=== PATIENT | female | born 1995 | race Caucasian/White ===

== ENCOUNTER 2018-07-13 23:19 | Emergency (ER) | payer MEDICAID ==
--- NOTE | 2018-07-13 23:29 | EDPHY ---
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 Patient is in no acute distress, not toxic-appearing. Physical examination reveals tenderness at the right navicular bone without significant swelling or ecchymosis; mild bony prominence when compared to the left side. X-ray reviewed by myself and Dr. Hoang, reveals no evidence of obvious fracture or malalignment. Patient has had pain for the last month that escalated over the last 3 days after long days of dancing; I have concern for navicular stress fracture or possibly ligamentous injury. There was no evidence of open fracture, dislocation, compartment syndrome or findings to suggest Lisfranc fracture. The patient was placed in a Pearson boot and was given crutches. I recommended nonweightbearing until follow-up with Podiatry. She will otherwise continue elevation, Tylenol and/or ibuprofen as needed for pain at home. Return precautions discussed-patient will return for significantly worsening or uncontrolled pain, numbness or tingling of the extremity, significant swelling or for any other concerning symptom. Patient and mother verbalized understanding and they are in agreement with this plan. DIFFERENTIAL DX: Differential diagnosis including but not limited to sprain, stress fracture, fracture, dislocation, compartment syndrome ED PROCEDURES: Procedure: Splint placement. A Pearson boot was applied. After application of the splint I returned and re- examined the patient. The splint was adequately immobilizing the joint and distal to the splint the patient's circulation and sensation was intact. CHIEF COMPLAINT: Right foot pain HPI: Patient is a 22-year-old female with no significant medical history, presents to the emergency department with right foot pain. Patient is a competitive dancer, over the last month she has experienced some intermittent right medial foot pain. They were recently traveling for competition, she has been not only dancing a lot but has also been walking a lot. Three days ago she had a worsening of her pain, describes it as sharp in nature and worsened with ambulation. She took some ibuprofen earlier today with mild relief of her symptoms. She denies any previous injury or surgery to this foot or ankle. She denies any direct trauma. She feels that it is located high in her foot and possibly into her ankle. She denies any increased pain with range of motion of her ankle. She denies any leg pain. She denies any other concern or complaint. PAST MEDICAL HISTORY: Denies Pertinent Past Surgical History: Denies Social History: Denies ROS: A full 10 point review of systems was negative except for those mentioned in HPI. PHYSICAL EXAM: General Appearance: Alert, well-appearing, no acute distress. HENT: Normocephalic, atraumatic. External ears are normal. Nares are clear, mucosa is pink. Oropharynx is clear. Eyes: PERRLA, EOMI. Conjunctiva pink, no pallor or injection. Neck: Supple, nontender, no lymphadenopathy, no midline pain, FROM. Respiratory: There are no retractions, lungs are clear to auscultation. Cardiac: Regular rate and rhythm, no murmurs or gallops. Gastrointestinal: Abdomen is soft, nontender, bowel sounds normal, no masses/ hernia, no rigidity, guarding or focal peritoneal findings. Skin: Warm, dry, no rashes, no nodules on palpation. Upper Extremities: Intact distal pulses, Full range of motion intact, no tenderness, no ecchymosis or edema Lower Extremities: Left lower extremity is unremarkable. Intact distal pulses, No edema, No tenderness, No cyanosis, full range of motion intact. Right lower extremity reveals tenderness to palpation medial foot at her navicular bone. There is mild bony prominence noted when compared to her left foot. There is no edema, ecchymosis or erythema. There are no open wounds. She has tenderness at the navicular bone as well as inferior to the medial malleolus. She has no lateral malleolar tenderness or edema. She has no tenderness at the base of the 5th metatarsal. Sensation is intact in her 1st webspace without tenderness to palpation. Dorsalis pedis 2+ bilaterally. No calf tenderness bilaterally. MEDICAL DECISION MAKING: Patient was seen independently. Secondary supervising physician at time of evaluation was Dr. Hoang, she did not evaluate this patient. Diagnosis: Right foot pain. New, requires workup Summary: See Assessment and Plan for summary of ED visit Clinical lab tests: Not applicable. Independent visualization of images, tracing, or specimens: Yes. Decision to obtain medical records or history from someone other than the patient: No Review / Summarize previous medical records: Yes Discussed patient with another provider: Yes, Dr. Hoang Patient Progress: Stable, discharge. (Tayler Mcdonald) PHYSICIAN DOCUMENTATION: The patient was evaluated and managed by the Physician Bran Mixer. My co- signature indicates that I have reviewed this chart and I agree with the findings and plan of care as documented. I am the secondary supervising physician. (Sabrina Hoang) - Objective Vital Signs: Initial Vital Signs Temperature (C) 36.8 C 07/13/18 23:23 Heart Rate 94 07/13/18 23:23 Respiratory Rate 16 07/13/18 23:23 Blood Pressure 97/83 H 07/13/18 23:23 O2 Sat (%) 99 07/13/18 23:23 O2 Delivery Mode Room Air Allergies/Adverse Reactions: No Known Allergies Allergy (Unverified 07/13/18 23:23) Home Medications: Medication Instructions Recorded NK [No Known Home Meds] 07/13/18 Medications Given: Discontinued Medications Ibuprofen (Motrin) 600 mg PO EDNOW ONE Stop: 07/14/18 00:18 Last Admin: 07/14/18 00:42 Dose: 600 mg Departure - Departure Disposition: Home, Routine, Self-Care Clinical Impression: Foot pain, right Condition: Good Instructions: Metatarsalgia (DC) Additional Instructions: DISCHARGE INSTRUCTIONS FROM YOUR DOCTOR Thank you for visiting our emergency department today. Please keep in mind that discharge from the emergency department does not mean that there is nothing wrong - it simply means that we have not identified an emergency condition that requires further evaluation or treatment in the hospital. You should always plan to follow up with primary care for re-evaluation of your condition in the next 2-3 days. If you have been referred to a specialist; you have been referred to Podiatry, please call on Monday morning to schedule a follow-up appointment. Rest, ice (on and off), elevate the foot and ankle as much possible above the level of the heart to decrease pain and swelling. Wear the boot, you may take it off to shower. User crutches, limit the amount of weight-bearing. For pain, Ibuprofen 400 mg every 6 hours. Do not exceed 2400 mg of ibuprofen in 24 hours. Stop taking this if it upsets her stomach. Tylenol 500 mg every 6 hours. Do not exceed 3000 mg in a 24-hour period. Continue your regular medications as prescribed. Return for increased pain or swelling, numbness, tingling or foot or toes, calf pain, paleness or coolness of the foot or toes or for any worsening or worrisome symptoms. People present with illnesses and injuries in different ways, and it is always possible that we have missed something. You may always return for re-evaluation if symptoms worsen or if they are not improving or if you develop new/different symptoms. Again, thank you for choosing our emergency department. We hope that you feel better. Referrals: Latonia Sherman [Doctor of Podiatric Medicine] - 2-3 days, call for appt.
[2018-07-14] MEDS ORDERED: IBUPROFEN 600 MG TAB PO ONE (00:17)
[2018-07-14 00:55] VITALS: BP 106/69
== END 2018-07-14 00:55 | disposition home or self-care (01) ==
DX: M79.671 Pain in right foot (principal)
CPT/HCPCS: L4386